=== PATIENT | female | born 1985 | race African-American/Black ===

== ENCOUNTER 2021-03-17 18:45 | Emergency (ER) | payer OTHER, MEDICAID ==
[~2021-03-17] VITALS: Ht 157.5 cm; Wt 100.0 kg
[2021-03-17] MEDS ORDERED: ALBUTEROL 6.7GM HFA INHALER ORI ONE (23:30)
[2021-03-18] MEDS ORDERED: ALBU6.7H9 INH ×2 (00:42→00:43)
[2021-03-18 01:00] VITALS: BP 116/52
[2021-03-18] MEDS ORDERED: ALBUTEROL 6.7GM HFA INHALER ORI NR (01:00)
== END 2021-03-18 01:05 | disposition home or self-care (01) ==
LOC: ER 18:45
DX: U07.1 COVID-19 (principal); R06.00 Dyspnea, unspecified
CPT/HCPCS: 36415; 71045; 84484; 93005; 94640; 99285; C9803; U0003; U0005